=== PATIENT | male | born 2000 | race Caucasian/White ===

== ENCOUNTER 2020-01-21 19:12 | Emergency (ER) | payer MEDICAID, SELFPAY ==
[2020-01-21 19:24] VITALS: BP 144/91; PULSE 80; RESP 16; TEMP 36.6; O2SAT 99; BMI 19.0
[2020-01-21 19:59] LABS: Basophils % 0.6 %; Eosinophils # 0.3 10^3/uL (0.0-0.8); Eosinophils % 4.1 %; Hemoglobin 13.4 g/dL (11.7-16.6); Lymphocytes # 1.1 10^3/uL (1.5-6.5); Lymphocytes % 17.3 %; Mean Corpuscular HGB Conc 33.5 g/dL (30.0-36.0); Mean Corpuscular Hemoglobin 28.9 pg (28.0-34.0); Mean Corpuscular Volume 86.2 fL (80-94); Mean Platelet Volume 11.3 fL (7.4-10.4); Monocytes # 0.5 10^3/uL (0.2-0.9); Monocytes % 7.4 %; Neutrophils # 4.5 10^3/uL (1.8-8.0); Neutrophils % 70.4 %; Nucleated Red Blood Cells % 0 %; Platelet Count 246 10^3/cmm (130-400); Red Blood Count 4.64 10^6/uL (4.1-5.3); Red Cell Distribution Width 11.6 % (12.1-15.1); White Blood Count 6.4 10^3/uL (4.5-13.0)
[2020-01-21 20:15] LABS: Alanine Aminotransferase 448 U/L (0-41); Albumin Level 4.6 g/dL (3.5-5.2); Alkaline Phosphatase 153 IU/L (40-130); Anion Gap 14.1 (5-19); Aspartate Amino Transferase 445 U/L (0-40); Blood Urea Nitrogen 11 mg/dL (6-20); Calcium 9.5 mg/dL (8.5-10.5); Carbon Dioxide 26 mmol/L (22-29); Chloride 101 mmol/L (98-107); Globulin 2.8 g/dL (1.3-4.6); Glomerular Filtration Rate 124.5 mL/min (90-130); Glucose 179 mg/dL (65-115); Osmolality Calculated 285 mOsm/kg (285-295); Potassium 4.1 mmol/L (3.5-5.1); Sodium 137 mmol/L (136-145); Total Bilirubin 1.7 mg/dL (0.15-1.2); Total Protein 7.4 g/dL (6.6-8.7)
--- NOTE | 2020-01-21 20:22 | USR_ITS ---
PROCEDURE INFORMATION: Exam: US Abdomen Limited, Right Upper Quadrant Exam date and time: 01/21/2020 8:32 PM Age: 19 years old Clinical indication: Abdominal pain; Epigastric; Additional info: Abdominal pain, nausea; Elevatd lfts TECHNIQUE: Imaging protocol: Real-time ultrasound of the abdomen with image documentation. Examination was focused on the right upper quadrant. COMPARISON: No relevant prior studies available. FINDINGS: Liver: The liver is 14.4 cm in length. Small hyperechoic foci in the liver, likely granulomata. Gallbladder: The gallbladder wall measures 1.8 mm. The gallbladder is fluid filled and distended. No pericholecystic edema. Common bile duct: The common duct is prominent measuring 12 mm. No focal obstructing calculus or lesion is seen. There is mild intrahepatic biliary ductal prominence. Pancreas: Visualized portions of the pancreas are unremarkable. Right kidney: The right kidney measures 10.0 cm in length. No hydronephrosis or shadowing renal calculi. Aorta: The aorta is normal caliber at 1.6 cm. Inferior vena cava: The IVC is patent. US/US gall bladder [id number] IMPRESSION: 1. No findings of cholelithiasis or acute cholecystitis. 2. Intrahepatic and extrahepatic biliary ductal prominence, with no focal obstructing calculus or lesion detected.
[2020-01-21 20:31] LABS: Lipase 830 U/L (13-60)
--- NOTE | 2020-01-21 21:05 | CTR_ITS ---
PROCEDURE INFORMATION: Exam: CT Abdomen And Pelvis With Contrast Exam date and time: 01/21/2020 9:12 PM Age: 19 years old Clinical indication: Abdominal pain; Generalized; Additional info: Epigastric pain, pancreatitis, ? gbd TECHNIQUE: Imaging protocol: Computed tomography of the abdomen and pelvis with intravenous contrast. Radiation optimization: All CT scans at this facility use at least one of these dose optimization techniques: automated exposure control; mA and/or kV adjustment per patient size (includes targeted exams where dose is matched to clinical indication); or iterative reconstruction. Contrast material: OMNI 300; Contrast volume: 95 ml; Contrast route: 20G; COMPARISON: US gall bladder [id number] 01/21/2020 8:35 PM RADIATION DOSE METRICS: Total DLP: 495.59 mGy-cm FINDINGS: Lungs: Partially calcified granuloma in the right lower lobe. Liver: There are no focal liver lesions present. Gallbladder and bile ducts: The gallbladder is fluid filled. There is intrahepatic and extrahepatic biliary ductal prominence. Common duct measures up to 12 mm. No focal obstructing lesion or calculus is seen. Pancreas: Peripancreatic edema is noted, suggesting pancreatitis. Correlate with clinical information. No pseudocyst formation is seen. The pancreatic duct is within normal limits. Spleen: The spleen is normal. Adrenals: The adrenal glands are normal. Kidneys and ureters: The kidneys are normal. Stomach and bowel: The stomach is normal. There is no evidence of intestinal perforation or obstruction. Appendix: No evidence of appendicitis. Intraperitoneal space: A small amount of free air is seen in the dependent pelvis. This is nonspecific. No free air identified. Vasculature: The vasculature is normal. Lymph nodes: No lymphadenopathy. Bladder: The bladder is normal. Reproductive: Unremarkable as visualized. Bones/joints: Unremarkable. No acute fracture. CT/CT abdomen pelvis w con* [id number] IMPRESSION: 1. Findings suggest pancreatitis. 2. Intrahepatic and extrahepatic biliary ductal dilatation, with no focal obstructing lesion or calculus identified. Radiation Dose CTDIVOL = (mGy): DLP = 495.59 (mGy-cm)
[2020-01-21] MEDS: sodium chloride 0.9% 1,000 ML 999 ML IV (22:30)
[2020-01-21] MEDS: ondansetron 2 mg/ML SDV 2 mL 4 MG IVP (22:35)
[2020-01-21 22:45] VITALS: RESP 20; O2SAT 100
[2020-01-21] MEDS: morphine 4 mg/mL SDV 1 mL IVP (22:45)
[2020-01-21] MEDS: iohexol 300 mg/mL 100 mL Btl IV (23:04)
--- NOTE | 2020-01-22 00:26 | ED_ITS ---
HPI - Abdominal Pain General: Chief Complaint: Abdominal Pain Stated Complaint: abd pain Time Seen by Provider: 01/21/20 20:58 Source: patient Mode of arrival: ambulatory Limitations: no limitations History of Present Illness: HPI narrative: Patient developed epigastric abdominal pain about 1 week ago and it has progressively worsened. He was initially seen at the clinic and diagnosed with gastritis but symptoms worsening. In the last 2 nights he has been unable to sleep because of severe pain. He has some nausea but no vomiting. No change in his bowel habits. No fever. The patient does not drink alcohol. MD elicited complaint: abdominal pain Onset (ago): week(s) (1) Location: Epigastric Severity: severe Quality: stabbing Radiation: RUQ Exacerbating factors: nothing Relieving factors: nothing Associated Symptoms: Reports nausea; Denies chills, constipation, diarrhea, dysuria, fever(s), melena and vomiting Review of Systems General: Reports: 10 or more systems reviewed and unremarkable except in HPI and below Const: Denies: fever(s), chills or body aches Card: Denies: palpitations, irregular heart rhythm, edema or swelling of feet/ankles Resp: Denies: dyspnea, productive cough or non-productive cough GI: Reports: abdominal pain and nausea; Denies: vomiting, dysphagia, diarrhea, constipation or melena : Denies: flank pain, dysuria, urinary frequency, urinary urgency or urinary hesitancy Musc: Denies: neck pain, back pain or extremity swelling Skin/Breast: Denies: rash, pruritus or erythema Neuro: Denies: headache(s), numbness in extremities or weakness in extremities Endo: Denies: polyuria, polydipsia or tired all the time [facility] ED PFSH: Social History Smoking and tobacco status: former smoker Physical Exam Const: COMMON NORMALS: no acute distress, average body habitus, patient oriented x3, no limitations, healthy appearing, alert and well nourished HENMT: COMMON NORMALS: normocephalic, atraumatic and moist oral mucous membranes HEAD & SCALP: normocephalic and atraumatic Neck/C-Spine: COMMON NORMALS: no meningeal signs and no JVD Resp: COMMON NORMALS: normal respiratory effort, No retractions, No use of accessory muscles, clear to auscultation bilaterally and percussion normal AUSCULTATION: clear to auscultation bilaterally PERCUSSION: percussion normal Cardio: COMMON NORMALS: no JVD, regular rate, regular rhythm, S1 normal heart sound present, S2 normal heart sound present, No gallops present (Cardio), No clicks present (Cardio), No murmurs present (Cardio), No rub (Cardio) and Peripheral pulses 2+ throughout RATE: regular rate RHYTHM: regular rhythm HEART SOUNDS: S1 normal heart sound present and S2 normal heart sound present PERIPHERAL PULSES: Peripheral pulses 2+ throughout GI: COMMON NORMALS: Normal to inspection, nondistended, normoactive bowel sounds present, Soft to palpation, No hepatosplenomegaly present, no masses and no bruits PALPATION: Yes Soft to palpation, Yes Tenderness to palpation present (GI) (Epigastric, no rebound, no guarding. ) and Yes No hepatosplenomegaly present : COMMON NORMALS: Yes no CVA tenderness BLADDER/KIDNEY EXAM: Yes no CVA tenderness Back/Pelvis: COMMON NORMALS: no CVA tenderness Extremity: COMMON NORMALS: normal to inspection, full ROM, capillary refill normal, no calf tenderness and no pedal edema Neuro: COMMON NORMALS: patient oriented x3 SENSORIUM/ORIENTATION: Yes alert MENINGEAL SIGNS: Yes no meningeal signs Skin: COMMON NORMALS: no rashes or lesions noted, no wounds, turgor normal, no jaundice, no petechiae and no mottling GENERAL SKIN EXAM: no rashes or lesions noted and turgor normal Course Reevaluation(s): Reevaluation #1: Pain resolved following morphine. Discussed his lab and imaging findings with him. Explained that he will need to be transferred for an ERCP. He voiced understanding and is in agreement with the plan Time: 23:30 Consultations: Consultation #1: Dr. Neal, hospitalist at [facility] in [place]. He kindly accepted the patient to his service Time: 12:25 Vital Signs: Vital signs: Vital Signs Temperature 97.9 F 01/21/20 19:24 Pulse Rate 80 01/21/20 19:24 Respiratory Rate 20 H 01/21/20 22:45 Blood Pressure 144/91 01/21/20 19:24 Pulse Oximetry 100 06/12/20 22:45 MDM - Abdominal Pain MDM Narrative: Medical decision making narrative: Patient with what appears to be gall stone pancreatitis. He has significantly elevated liver enzymes, elevated bilirubin, as well as pancreatitis. No gallstones seen on ultrasound or CT scan of his abdomen but he has an enlarged common bile duct. He will therefore benefit from an ERCP, so he is being transferred to [facility] in [place] for that purpose. Medical Records: Attestation: I reviewed the patient's medical records. Lab Data: Attestation: I reviewed the patient's lab results. Labs: Lab Results 01/21/20 01/21/20 Range/Units 19:51 19:51 WBC 6.4 (4.5-13.0) 10^3/ uL RBC 4.64 (4.1-5.3) 10^6/u L Hgb 13.4 (11.7-16.6) g/dL Hct 40.0 L (42.0-52.0) % MCV 86.2 (80-94) fL MCH 28.9 (28.0-34.0) pg MCHC 33.5 (30.0-36.0) g/dL RDW 11.6 L (12.1-15.1) % Plt Count 246 (130-400) 10^3/c mm MPV 11.3 H (7.4-10.4) fL Neut % (Auto) 70.4 % Lymph % (Auto) 17.3 % Ross % (Auto) 7.4 % Eos % (Auto) 4.1 % Baso % (Auto) 0.6 % Neut # (Auto) 4.5 (1.8-8.0) 10^3/u L Lymph # (Auto) 1.1 L (1.5-6.5) 10^3/u L Ross # (Auto) 0.5 (0.2-0.9) 10^3/u L Eos # (Auto) 0.3 (0.0-0.8) 10^3/u L Baso # (Auto) 0.0 (0.0-0.1) 10^3/u L Nucleated RBC % (a uto) 0 % Nucleated RBCs # 0.0 /100WBC Sodium 137 (136-145) mmol/L Potassium 4.1 (3.5-5.1) mmol/L Chloride 101 (98-107) mmol/L Carbon Dioxide 26 (22-29) mmol/L Anion Gap 14.1 (5-19) BUN 11 (6-20) mg/dL Creatinine 0.8 (0.7-1.2) mg/dL GFR Calculation 124.5 (90-130) mL/min Glucose 179 H (65-115) mg/dL Calculated Osmolal ity 285 (285-295) mOsm/k g Calcium 9.5 (8.5-10.5) mg/dL Total Bilirubin 1.7 H (0.15-1.2) mg/dL AST 445 H (0-40) U/L ALT 448 H (0-41) U/L Alkaline Phosphata se 153 H (40-130) IU/L Total Protein 7.4 (6.6-8.7) g/dL Albumin 4.6 (3.5-5.2) g/dL Globulin 2.8 (1.3-4.6) g/dL Lipase 830 H (13-60) U/L Imaging Data ^: US: Radiologist's impression: [place] [id number] Ultrasound Report Signed Patient: Edwige Rivera #: [id number] : 2000Acct#:[id number] Age/Sex: 19 / MADM Date: 01/21/20 Loc: [facility]/Bed: Attending Dr: Ordering Provider/Ordering MD: Sherly Corbett Date of Service: 01/21/20 Procedure(s): US gall bladder [id number] Accession Number(s): [id number] Report Number: [id number] PROCEDURE INFORMATION: Exam: US Abdomen Limited, Right Upper Quadrant Exam date and time: 01/21/2020 8:32 PM Age: 19 years old Clinical indication: Abdominal pain; Epigastric; Additional info: Abdominal pain, nausea; Elevatd lfts TECHNIQUE: Imaging protocol: Real-time ultrasound of the abdomen with image documentation. Examination was focused on the right upper quadrant. COMPARISON: No relevant prior studies available. FINDINGS: Liver: The liver is 14.4 cm in length. Small hyperechoic foci in the liver, likely granulomata. Gallbladder: The gallbladder wall measures 1.8 mm. The gallbladder is fluid filled and distended. No pericholecystic edema. Common bile duct: The common duct is prominent measuring 12 mm. No focal obstructing calculus or lesion is seen. There is mild intrahepatic biliary ductal prominence. Pancreas: Visualized portions of the pancreas are unremarkable. Right kidney: The right kidney measures 10.0 cm in length. No hydronephrosis or shadowing renal calculi. Aorta: The aorta is normal caliber at 1.6 cm. Inferior vena cava: The IVC is patent. US/US gall bladder [id number] IMPRESSION: 1. No findings of cholelithiasis or acute cholecystitis. 2. Intrahepatic and extrahepatic biliary ductal prominence, with no focal obstructing calculus or lesion detected. Dictated By:Kelly Iverson MD Signed By:Kelly Iverson MDSigned Date/Time:01/21/202121 DD/ 20 CT Abd/Pel: Radiologist's impression: [place] [id number] CT Scan Report Signed Patient: Edwige Rivera #: [id number] : 2000Acct#:[id number] Age/Sex: 19 / MADM Date: 01/21/20 Loc: [facility]/Bed: Attending Dr: Ordering Provider/Ordering MD: Shon Louis MD, [facility] Date of Service: 01/21/20 Procedure(s): CT abdomen pelvis w con* [id number] Accession Number(s): [id number] Report Number: [id number] PROCEDURE INFORMATION: Exam: CT Abdomen And Pelvis With Contrast Exam date and time: 01/21/2020 9:12 PM Age: 19 years old Clinical indication: Abdominal pain; Generalized; Additional info: Epigastric pain, pancreatitis, ? gbd TECHNIQUE: Imaging protocol: Computed tomography of the abdomen and pelvis with intravenous contrast. Radiation optimization: All CT scans at this facility use at least one of these dose optimization techniques: automated exposure control; mA and/or kV adjustment per patient size (includes targeted exams where dose is matched to clinical indication); or iterative reconstruction. Contrast material: OMNI 300; Contrast volume: 95 ml; Contrast route: 20G; COMPARISON: US gall bladder [id number] 01/21/2020 8:35 PM RADIATION DOSE METRICS: Total DLP: 495.59 mGy-cm FINDINGS: Lungs: Partially calcified granuloma in the right lower lobe. Liver: There are no focal liver lesions present. Gallbladder and bile ducts: The gallbladder is fluid filled. There is intrahepatic and extrahepatic biliary ductal prominence. Common duct measures up to 12 mm. No focal obstructing lesion or calculus is seen. Pancreas: Peripancreatic edema is noted, suggesting pancreatitis. Correlate with clinical information. No pseudocyst formation is seen. The pancreatic duct is within normal limits. Spleen: The spleen is normal. Adrenals: The adrenal glands are normal. Kidneys and ureters: The kidneys are normal. Stomach and bowel: The stomach is normal. There is no evidence of intestinal perforation or obstruction. Appendix: No evidence of appendicitis. Intraperitoneal space: A small amount of free air is seen in the dependent pelvis. This is nonspecific. No free air identified. Vasculature: The vasculature is normal. Lymph nodes: No lymphadenopathy. Bladder: The bladder is normal. Reproductive: Unremarkable as visualized. Bones/joints: Unremarkable. No acute fracture. CT/CT abdomen pelvis w con* [id number] IMPRESSION: 1. Findings suggest pancreatitis. 2. Intrahepatic and extrahepatic biliary ductal dilatation, with no focal obstructing lesion or calculus identified. Radiation Dose CTDIVOL = (mGy): DLP = 495.59 (mGy-cm) Dictated By:Kelly Iverson MD Signed By:Kelly Iversonigned Date/Time:01/21/202341 DD/ 40 Discharge Plan Discharge Patient Disposition: Xfer Short-Term Hosp Clinical Impression: Acute gallstone pancreatitis Condition: Stable Discharge Orders: Transfer Out of Facility (Order); Ordered 01/22/20 Ordered By: Shon Louis Referrals: Nita Mills DO [Primary Care Provider] - Coding Level of Care Code ED Cut In Worker for Donal Pruett
[2020-01-22 00:57] LABS: INR 0.84 (0.8-1.2)
[2020-01-22 01:07] LABS: Amphetamines Screen Urine Negative (Negative); Barbiturates Screen Urine Negative (Negative); Benzodiazepines Screen Urine Negative (Negative); Cocaine Screen Urine Negative (Negative); Opiate Screen Urine Negative (Negative); PCP Screen Urine Negative (Negative); THC Screen Urine Negative (Negative)
[2020-01-22 01:08] LABS: Add Urine Microscopic? YES; Amorphous Sediment Urine 2+; Bacteria Urine 1+; Bilirubin Urine 1+ (NEGATIVE); Blood Urine Neg (Negative); Glucose Urine UA 2+ (Normal); Ketones Urine 2+ (Negative); Leukocyte Esterase Urine Negative (Negative); Mucus Urine 2+; Nitrate Urine Negative (Negative); Protein Urine Neg (Negative); RBC Urine RARE /hpf (0-2); Specific Gravity, Urine 1.015 (1.005-1.030); Squamous Epithelial Cell Urine RARE (0-5); Urine Appearance Cloudy (CLEAR); Urine Color Yellow (Yellow); Urobilinogen Urine 4 mg/dL (Negative); WBC Urine RARE /hpf (0-5); pH Urine 7 (5-7)
[2020-01-22 01:13] LABS: Hepatitis A Antibody IgM Non-Reactive (Nonreactive); Hepatitis B Core AB, Total Non-Reactive (Nonreactive); Hepatitis B Surface AB 3.5 (0-8.5); Hepatitis B Surface Antigen Non-Reactive (Nonreactive); Hepatitis C Virus Antibody Non-Reactive (Nonreactive)
[2020-01-22 02:44] VITALS: BP 120/76; PULSE 72; RESP 18; O2SAT 100
== END 2020-01-22 02:40 | disposition short-term general hospital (02) ==
PROVIDERS: Emergency Provider Family Medicine; PCP Family Medicine
DX: K85.10 Biliary acute pancreatitis without necrosis or infection (principal); Z87.891 Personal history of nicotine dependence
CPT/HCPCS: 12345; 36415; 74177; 76705; 80053; 80306; 81001; 83690; 85025; 85610; 86705; 86706; 86709; 86803; 87340; 96361; 96374; 96375; 96376; 99283; 99285; J2270; J2405; J7030; Q9967